=== PATIENT | female | born 1995 | race Caucasian/White ===

== ENCOUNTER → 2018-10-26 | Outpatient (CLI) | payer OTHER ==
--- NOTE | 2018-10-26 17:11 | 2DMMODE ---
[place] [address] 2 D/M-MODE ECHOCARDIOGRAM Name: CHALINO MONTELONGO Room: [facility]#: [id number] Admission: 10/26/18 Attend Phys: SENDY YANG, Discharge: Date of : 89 Date of Service: 10/26/18 1710 Report #: [id number] THIS REPORT FOR: //name// APPROVED REPORT Study performed: 10/26/2018 14:09:42 EXAM: Comprehensive 2D, Doppler, and color-flow Echocardiogram Patient Location: Out-Patient BSA: 1.59 HR: 62 bpm Other Information Study Quality: Good Indications Congestive Heart Failure Hx. of Fontan procedure Pulmonary Atresia 2D Dimensions IVSd: 10.57 (7-11mm) LVOT Diam: 20.44 (18-24mm) LVDd: 46.14 mm PWd: 8.72 (7-11mm) Ascending Ao: 26.98 (22-36mm) LVDs: 34.54 (25-40mm) Aortic Root: 24.68 mm Volumes Left Atrial Volume (Systole) LA ESV Index: 17.30 mL/m2 Aortic Valve AoV Peak Mike.: 0.98 m/s AO Peak Gr.: 3.82 mmHg LVOT Max P.57 mmHg AO Mean Gr.: 2.11 mmHg LVOT Mean P.71 mmHg LVOT Max V: 0.94 m/s AO V2 VTI: 20.61 cm LVOT Mean V: 0.60 m/s IRMA (VTI): 3.16 cm2 LVOT V1 VTI: 19.87 cm Mitral Valve E/A Ratio: 1.98 MV Decel. Time: 120.17 ms MV E Max Mike.: 0.71 m/s MV PHT: 34.85 [place] [address] 2 D/M-MODE ECHOCARDIOGRAM Name: CHALINO MONTELONGO Room: [facility]#: [id number] Admission: 10/26/18 Attend Phys: SENDY YANG, Discharge: Date of : 89 Date of Service: 10/26/18 1710 Report #: [id number] MVA (PHT): 6.31 cm2 TDI E/Lateral E': 4.73 E/Medial E': 10.14 Medial E' Mike.: 0.07 m/s Lateral E' Mike.: 0.15 m/s Pulmonary Valve PV Peak Mike.: 0.82 m/s PV Peak Gr.: 2.68 mmHg Left Ventricle The left ventricle is normal size. There is normal LV segmental wall motion. There is normal left ventricular wall thickness. Left ventricular systolic function is borderline. LVEF is 45-50%. The left ventricular diastolic function is normal. Right Ventricle The right ventricle is normal size. The right ventricular systolic function is normal. Atria The left atrium size is normal. suggestion of previous patch repair of the atrial septum. The right atrium size is normal. Aortic Valve The aortic valve is normal in structure. No aortic regurgitation is present. There is no aortic valvular stenosis. Mitral Valve The mitral valve is normal in structure. Mild mitral regurgitation. No evidence of mitral valve stenosis. Tricuspid Valve The tricuspid valve is normal in structure. There is no tricuspid valve regurgitation noted. Pulmonic Valve Pulmonic valve is not well visualized. There is no pulmonic valvular regurgitation. Great Vessels The aortic root is normal in size. IVC is normal in size and collapses >50% with inspiration. Pericardium There [place] [address] 2 D/M-MODE ECHOCARDIOGRAM Name: CHALINO MONTELONGO Room: [facility]#: [id number] Admission: 10/26/18 Attend Phys: SENDY YANG, Discharge: Date of : 89 Date of Service: 10/26/181709 Report #: [id number] <Conclusion> LVEF is 45-50%. Mild mitral regurgitation. <ELECTRONICALLY SIGNED> By: Ross Okeefe MD, [facility] 10/26/180 09 09 Ross Okeefe MD, FACC /INF
== END ==
LOC: M.CRD 14:00
DX: I08.1 Rheumatic disorders of both mitral and tricuspid valves (principal); Q24.9 Congenital malformation of heart, unspecified